=== PATIENT | male | born 1960 | race Caucasian/White ===

== ENCOUNTER 2016-09-13 07:13 | Day surgery (SDC) | payer SELFPAY ==
[~2016-09-13] VITALS: Ht 177.8 cm; Wt 87.4 kg
[2016-09-13] VITALS (10 sets, daily range): BP systolic 100–143; BP diastolic 54–89; PULSE 53–73; RESP 10–20; O2SAT 94–99
[~2016-09-13 07:13] MED LIST: Acetaminophen IV 1,000 mg IV ONE; GABA800T2 PO; Lactated Ringer's 1,000 ML IV ONE
[2016-09-13] MEDS ORDERED: Ondansetron 2 mg/mL 2 mL Inj ONE (07:14)
[2016-09-13] MEDS ORDERED: Ketamine 10 mg/mL 20 mL Inj ONE (07:14)
[2016-09-13] MEDS ORDERED: fentaNYL-PF 50 mCg/mL 2 mL Inj ONE (07:14)
[2016-09-13] MEDS ORDERED: Dexamethasone 4 mg/mL Inj ONE (07:14)
[2016-09-13] MEDS ORDERED: IBUP200C PO (07:29)
[2016-09-13] MEDS ORDERED: KIRKLAND SLEEP AID PO (07:29)
[2016-09-13] MEDS ORDERED: levoFLOXacin 500 mg/100 mL D5W Premix IV ONE (07:42)
[2016-09-13] MEDS ORDERED: Levofloxacin 500 mg/100 mL D5W IV ONE (07:50)
[2016-09-13] MEDS ORDERED: tylenol PO (08:01)
[2016-09-13] MEDS ORDERED: Lactated Ringer's 500 ML IV PRN (08:50)
[2016-09-13] MEDS ORDERED: Ondansetron 2 mg/mL 2 mL Inj IVPUSH PRN (08:50)
[2016-09-13] MEDS ORDERED: Phenylephrine 10,000 mCg/mL Inj IVPUSH PRN (08:50)
[2016-09-13] MEDS ORDERED: fentaNYL-PF 50 mCg/mL 2 mL Inj IVPUSH PRN (08:50)
[2016-09-13] MEDS ORDERED: Dexamethasone 4 mg/mL Inj IVPUSH PRN (08:50)
[2016-09-13] MEDS ORDERED: Lactated Ringer's 1,000 ML IV SCH (08:50)
[2016-09-13] MEDS ORDERED: EPHEDrine Sulfate 50 mg/mL Inj IVPUSH PRN (08:50)
[2016-09-13] MEDS ORDERED: MetoCLOpramide 5 mg/mL 2 mL Inj IVPUSH PRN (08:50)
--- NOTE | 2016-09-13 08:50 | PCM.HPANE ---
Patient Data Surgeon Admitting Provider: Attending Provider:Pat Pandey MD Primary Care Physician:Christiano Lamb MD Other Provider:[facility] Reason for Visit Bladder Neck Contracture Ht/WT & BMI Height (Feet): 5 Height (Inches): 10.00 Weight (Kilograms): 87.4 Body Mass Index 27.00 Allergies Coded Allergies: Cephalosporins (Verified Allergy, Severe, RASH, 09/08/16) gluten (Verified Allergy, Severe, gi upset, 09/13/16) Sulfa (Sulfonamide Antibiotics) (Verified Adverse Reaction, Severe, NAUSEA , 09/08/16) doxazosin (Verified Adverse Reaction, Severe, CHEST PAIN, SEVERE PALPITATIONS, 09/08/16) Uncoded Allergies: BEE STINGS (Allergy, Unknown, UNKNOWN, 09/08/16) Past Anesthesia History Anesthesia History: Denies:: Abnormal Airway, Anesthesia Reactions, Difficult Intubation, Malignant Hyperthermia Diabetes History Hx Diabetes?: No MRSA MRSA: No Medications Hypertension Medication: No Home Meds Incl Beta Thompson: No Reported Medications [tylenol] No Conflict [id number] Mg PO prn p 09/13/16 Ibuprofen 200 Mg [id number] Mg PO QID PRN For Pain Ref 0 09/13/16 [cheema sleep aid] No Conflict Check Po Hs 09/13/16 Discontinued Reported Medications Gabapentin 800 Mg [id number] Mg PO TID Ref 0 11/22/14 Lorazepam (Ativan)0.5 Mg Tablet0.5 Mg PO TID PRN For Anxiety Ref 0 11/22/14 Betamethasone/Clotrimazole (Lotrisone Cream)60 Applic/15 Gm Cream60 Applic EXT BID #1 TUBE 11/22/14 History History of ENT Problems?: No HEENT History: Denies:: Abnormal Airway Difficult Intubation Denture Type: None Teeth Condition: Within Normal Limits Hx of Heart Problems?: Yes Cardiovascular History: Positive for:: Chest Pain (02/2013 R/T PANCREATITIS) Hypertension (HYPERLIPIDEMIA) Irregular Heartbeat (REPORTS PALPITATIONS) Denies:: Heart Murmur Hx of Respiratory Problem?: No Respiratory History: Denies:: Use of C-PAP Machine Hx Neurologic Problems?: Yes Hx of GI Problems?: Yes Other GI Pertinent History: HX DISTASIS RECTI Hx of Problems?: Yes Genitourinary History: Positive for:: Kidney Stones (HX OF STONES) Urinary Tract Infection (RECURRENT/HX OF PYELONEPHRITIS ) Other Pertinent History: HX NEUROGENIC BLADDER-SELF CATHS IN THE PAST BLADDER NECK CONTRACTURE=CURRENT PROBLEM S/P CIRCUMCISION, MULT CYSTOS, URODYNAMICS Male Hx: Positive for:: Prostate Problems (BPH W/ LUTS S/P TURP) Scrotal Mass (HX OF SPERMATOCELE) Denies:: Testicular Surgery Skin History: Positive for:: History Skin Disorders? (S/P EXC SKIN LESIONS LT GROIN & LT BUTTOCK) Denies:: Pressure Ulcers Hx Musculoskeletal Problems?: Yes Musculoskeletal History: Denies:: Back Injury (C/OF LOWER BACK PAIN) Hx of Psycho/Social Problems?: Yes Psycho Social History: Positive for:: Anxiety Hx Depression Denies:: Suicide Attempt (2006 SUICIDAL IDEATION) Hx Surgeries?: Yes (CIRCUMCISION,MULT CYSTOS,URODYNAMICS,TURP,EXC SKIN LESIONS) Hx Any Other Health Problems?: Yes Other History: Denies:: Cancer Endocrine Disease Hospitalization Thyroid Disease History Blood Transfusions: Denies:: Blood Transfusions Hx Diabetes: No Hx Alcohol Use: NoHx Substance Use: No Smoking Status: Former Smoker Have You Smoked inLast 12 mo: NoApprox How Many Cigarettes/day: 1 PPD X 7YRS Stop/Bang S-Snoring: Do You Snore Loudly: No T-Tired: feel tired, fatigued: Yes O-Obsered: Observed not breath: No P-Blood Pressure: treated: Yes B- Body Mass Index > 35 kg/m2: No A- Age over 50: Yes N- Neck Large Circumference: No G- Gender Male: Yes DESTINY Total Score: 4 DESTINY Risk Assessment: High Risk, =/>3 Yes DESTINY Category 4 OutPt Procedure: Yes Risk Assessment Category Category 1A: Patient has history of documented sleep apnea, and HAS NOT received any narcotic, sedative or anesthesia administration during this stay. Category 1B: Patient has history of documented sleep apnea, and HAS received any narcotic , sedative or anesthesia administration during this stay Category 2: Patient has SUSPECTED Obstructive Sleep Apnea, and HAS received any narcotic , sedative or anesthesia administration during this stay. Category 3: Patient has SUSPECTED Obstructive Sleep Apnea and HAS NOT received narcotic, sedative or anesthesia administration during this stay. Category 4: Outpatient in Procedural Areas with known sleep apnea or who screen positive for High Risk via the STOP/BANG questionnaire. Exam Exam Vital Signs Vital Signs Date Time Temp Pulse Resp B/P Pulse Ox O2 Delivery O2 Flow Rate FiO2 09/13/16 08:01 36.1 60 18 131/89 98 Room Air General Appearance: Alert, Oriented X3, Cooperative, No Acute Distress HEENT/AIRWAY: MP 2 Lungs: Clear to Auscultation, Normal Air Movement Heart: Exam Unremarkable, Regular Rate/Rhythm, No Murmurs/Rubs/Gallops Meds/Labs/Diagnostics Admission Meds Current Medications Lactated Ringer's (Lr) 1,000 ml @ 120 mls/hr [id number] ONCE IV Last administered on 09/13/16t 07:16; Start 09/13/16 at 05:00; Stop 09/13/16 at 13:19 Plan Impression Patient chart reviewed, patient interviewed and anesthestic plan with risks, benefits, and alternatives discussed, and informed consent obtained. ASA Physical Status: ASA2 Mod Systemic Disease Anesthetic Plan: GA Bene/Risks/Altern/Consents: Yes HP Complete Prior to Induction: Yes Gerson Garcia MD Sep 13, 2016 08:50
[2016-09-13] MEDS ORDERED: Belladonna Alk-Opium 60 mg Rectal Suppository RECTAL ONE ×2 (10:14→10:40)
[2016-09-13] MEDS: HYDROmorphone 1 mg/mL Inj IVPUSH PRN ×2 (11:34→11:47)
[2016-09-13 11:54] LABS: APPEARANCE,URINE HAZY (CLEAR,HAZY); COLOR,URINE STRAW (YELLOW)
[2016-09-13 11:55] LABS: OCCULT BLOOD,URINE SMALL (NEGATIVE); PH,URINE 7.5 (5.0-8.0); UROBILINOGEN,URINE NORMAL (NORMAL)
--- NOTE | 2016-09-13 13:19 | PCM.ANEP1 ---
Post Anesthesia PACU Phase 1 Assessment Vital Signs Vital Signs Date Time Temp Pulse Resp B/P Pulse Ox O2 Delivery O2 Flow Rate FiO2 09/13/16 11:56 37.1 73 10 140/89 95 Nasal Cannula 2 09/13/16 11:45 72 18 124/77 94 Room Air 09/13/16 11:29 65 12 143/83 97 Room Air 09/13/16 11:26 68 15 127/76 96 Room Air 09/13/16 11:19 36.3 57 12 111/69 99 Simple Mask 8 09/13/16 11:14 62 12 113/63 98 Simple Mask 8 09/13/16 11:10 54 20 104/54 97 Simple Mask 8 09/13/16 11:05 54 100/55 98 Simple Mask 8 09/13/16 11:02 36.0 53 13 105/57 98 Simple Mask 8 09/13/16 08:01 36.1 60 18 131/89 98 Room Air Anesthetic Administered: GA Level of Alertness: Awake, talking [place]'s with Equal Strength: Yes Pain: No Nausea or Vomiting: No CV Function & Hydration Stable: Yes Airway Device: Oralpharangeal Airway Oxygen Delivery: Simple Mask Lungs: Clear to Auscultation, Normal Air Movement Dermatome Level: Full Sensation PACU Phase 2 Assessment Complications: No Follow up Care: No Patient Instructions Provided: N/A Gerson Garcia MD Sep 13, 2016 13:19
--- NOTE | 2016-09-13 23:09 | OP ---
[address] [address] OPERATIVE REPORT PATIENT: HYACINTH CASTELLANOS : 1960 MR#: [id number] ADMIT: 09/13/2016 JOB ID: [id number] DATE OF SURGERY: 09/13/2016 PREOPERATIVE DIAGNOSIS(ES): 1. Urinary retention. 2. Recurrent urinary tract infection. 3. Nodular prostatic regrowth. 4. Bladder neck contracture. POSTOPERATIVE DIAGNOSIS(ES): 1. Urinary retention. 2. Recurrent urinary tract infection. 3. Nodular prostatic regrowth. 4. Bladder neck contracture. 5. Removal of bladder calculi x2. OPERATION PERFORMED: 1. Redo transurethral resection of the prostate. 2. Transurethral resection of bladder neck contracture. 3. Removal of bladder calculi x2. SURGEON: Pat Pandey MD. ANESTHESIOLOGIST: Gerson Garcia MD. ANESTHESIA: General. FINDINGS: Urethra normal. External sphincter intact. Prostate 4.5 cm length with obstructing nodular regrowth mainly from the right mid and apical region extending down into the posterior midline, as well as a tight 15-Lebanese bladder neck contracture. The left prostatic fossa was nonobstructed status post TUR. PROCEDURE SUMMARY: The patient was positioned in supine and was administered general anesthesia. He was then repositioned in semi-lithotomy and the lower abdomen, genitalia, and groin were prepped and draped in sterile fashion. The 24-Lebanese resectoscope was advanced to the lower urinary tract with the findings as described above. Next, the Shoemaker Working Element was positioned in the resectoscope and transurethral resection of prostate was then conducted on the obstructing right lateral lobe in the posterior midline and portion of the median lobe using the button element. The bladder neck was carefully entered with the button at the three and nine o'clock positions and progressively incised laterally to vascularized tissue. The intervening tissue was resected as well with the button. Two calculi were encountered initially in the prostatic fossa and ultimately the bladder, which were removed. There was excellent hemostasis. The bladder was then partially filled. The resectoscope was removed and a 22-Lebanese two-way hematuria catheter was inserted and placed to gravity drainage. The patient was then repositioned supine, awakened, and transferred to her [facility] in stable condition.
== END 2016-09-13 23:59 | disposition home or self-care (01) ==
LOC: SAS 07:13
PROVIDERS: ATTEND Specialist
DX: N32.0 Bladder-neck obstruction (principal); R33.8 Other retention of urine; N21.0 Calculus in bladder; N40.1 Benign prostatic hyperplasia with lower urinary tract symptoms; I10 Essential (primary) hypertension; E78.5 Hyperlipidemia, unspecified; Z87.440 Personal history of urinary (tract) infections; Z87.891 Personal history of nicotine dependence; Z87.442 Personal history of urinary calculi
CPT/HCPCS: 52310; 52640; 81000; 87086; J1100; J1170; J2250; J2405; J2765; J3010; J7120